=== PATIENT | female | born 1960 | race Caucasian/White ===

== ENCOUNTER 2017-09-06 22:20 | Inpatient (IN) | payer BC ==
[~2017-09-06] VITALS: Ht 160 cm; Wt 85.2 kg
[~2017-09-06 22:20] MED LIST: DAILY MULTIPLE1 EACH PO; IRON325 M1 PO; TRAMADOL HCL50 MG PO; XARELTO20 MG PO
[2017-09-07 07:54] VITALS: BP 159/72
[2017-09-07 14:07] VITALS: BP 123/58
[2017-09-07 16:09] VITALS: BP 133/65
[2017-09-07 20:15] VITALS: BP 122/67
[2017-09-08 00:18] VITALS: BP 141/66
[2017-09-08 05:35] LABS: HEMATOCRIT 35.1 % (36.0-46.0); HEMOGLOBIN 11.3 G/DL (11.9-15.5); MCV 86.2 FL (83-99)
[2017-09-08 05:57] LABS: CHLORIDE 105 MEQ/L (99-109); CREATININE 0.7 MG/DL (0.6-1.3); GFR ESTIMATE (CALCULATED) > 59 mL/min/; GLUCOSE 105 mg/dL (70-99); POTASSIUM 4.3 MEQ/L (3.7-5.4); SODIUM 141 MEQ/L (136-147); UREA NITROGEN (BUN) 15 mg/dL (9-23)
[2017-09-08 07:59] VITALS: BP 109/52
[2017-09-08] MEDS ORDERED: BENADRYL25 MG PO (08:53)
[2017-09-08] MEDS ORDERED: TYLENOL REGULA325 MG PO (08:54)
[2017-09-08] MEDS ORDERED: CELECOXIB200 MG PO (08:55)
[2017-09-08] MEDS ORDERED: OXYCODONE HCL5 MG PO (08:55)
[2017-09-08] MEDS ORDERED: BISACODYL5 MG PO (08:55)
[2017-09-08 11:52] VITALS: BP 128/59
[2017-09-08 16:07] VITALS: BP 152/70
[2017-09-08 20:32] VITALS: BP 158/74
[2017-09-09 00:23] VITALS: BP 161/72
[2017-09-09 04:26] VITALS: BP 166/74
[2017-09-09 07:11] LABS: HEMATOCRIT 33.2 % (36.0-46.0); HEMOGLOBIN 11.3 G/DL (11.9-15.5); MCV 85.1 FL (83-99)
[2017-09-09 08:00] VITALS: BP 148/70
[2017-09-09 12:00] VITALS: BP 162/77
== END 2017-09-09 14:00 | DRG 470 ==
LOC: ENRESERV 22:20 → 2SOUTH 09-07 05:39 → 3WEST 09-07 13:40 → 2SOUTH 09-07 15:41 → 3WEST 09-09 14:00
PROVIDERS: Orthopaedic Surgery
PROC: 0SRC0J9 Replacement of Right Knee Joint with Synthetic Substitute, Cemented, Open Approach (ICD-10-PCS; principal; 2017-09-07)
DX: M17.11 Unilateral primary osteoarthritis, right knee (principal); E66.9 Obesity, unspecified; Z68.33 Body mass index [BMI] 33.0-33.9, adult; M54.17 Radiculopathy, lumbosacral region
CPT/HCPCS: 80048; 85014; 85018; 94799; C1713; J0131; J1100; J1885; J2250; J2405; J2795; J3010; J7050

== ENCOUNTER 2018-01-04 21:52 | Inpatient (IN) | payer BC ==
[~2018-01-04] VITALS: Ht 160 cm; Wt 86.3 kg
[~2018-01-04 21:52] MED LIST changes: +ALLERCLEAR D-11 EACH PO; +BENADRYL25 MG PO; +BISACODYL5 MG PO; +CELECOXIB200 MG PO; +OXYCODONE HCL5 MG PO; +TYLENOL REGULA325 MG PO; +ULTRAM50 MG PO
[2018-01-05 07:29] VITALS: BP 168/74
[2018-01-05 14:11] VITALS: BP 135/63
[2018-01-05 15:32] VITALS: BP 150/70
[2018-01-05 20:28] VITALS: BP 130/75
[2018-01-06 00:18] VITALS: BP 120/58
[2018-01-06 04:18] VITALS: BP 111/60
[2018-01-06 06:04] LABS: HEMATOCRIT 31.3 % (36.0-46.0); HEMOGLOBIN 10.3 G/DL (11.9-15.5); MCV 85.5 FL (83-99)
[2018-01-06 06:24] LABS: CHLORIDE 105 MEQ/L (99-109); CREATININE 0.7 MG/DL (0.6-1.3); GFR ESTIMATE (CALCULATED) > 59 mL/min/; GLUCOSE 92 mg/dL (70-99); POTASSIUM 4.3 MEQ/L (3.7-5.4); SODIUM 138 MEQ/L (136-147); UREA NITROGEN (BUN) 17 mg/dL (9-23)
[2018-01-06 08:38] VITALS: BP 119/59
[2018-01-06] MEDS ORDERED: CELECOXIB200 MG PO (10:52)
[2018-01-06] MEDS ORDERED: GABAPENTIN100 MG PO (10:52)
[2018-01-06] MEDS ORDERED: OXYCODONE HCL5 MG PO (10:52)
[2018-01-06 11:57] VITALS: BP 138/69
== END 2018-01-06 14:10 | DRG 470 ==
LOC: ENRESERV 21:52 → 2SOUTH 01-05 07:07 → 3WEST 01-05 07:07 → 2SOUTH 01-05 13:00 → 3WEST 01-05 13:58 → 2SOUTH 01-05 15:16 → 3WEST 01-06 14:10
PROVIDERS: Orthopaedic Surgery
PROC: 0SRD0J9 Replacement of Left Knee Joint with Synthetic Substitute, Cemented, Open Approach (ICD-10-PCS; principal; 2018-01-05)
DX: M17.12 Unilateral primary osteoarthritis, left knee (principal); Z96.651 Presence of right artificial knee joint; M21.062 Valgus deformity, not elsewhere classified, left knee; E66.9 Obesity, unspecified; D69.6 Thrombocytopenia, unspecified; Z88.5 Allergy status to narcotic agent; Z68.34 Body mass index [BMI] 34.0-34.9, adult; Z87.891 Personal history of nicotine dependence; Z98.84 Bariatric surgery status; Z86.718 Personal history of other venous thrombosis and embolism; Z83.3 Family history of diabetes mellitus; Z82.49 Family history of ischemic heart disease and other diseases of the circulatory system
CPT/HCPCS: 80048; 85014; 85018; 85049; C1713; J1170; J1885; J2250; J2795; J7050